=== PATIENT | male | born 1995 | race Two or more races ===

== ENCOUNTER 2018-06-13 20:31 | Emergency (ER) | payer SELFPAY ==
[~2018-06-13] VITALS: Ht 175.3 cm; Wt 90.7 kg
--- NOTE | 2018-06-13 20:43 | Emergency Room Report ---
History of Present Illness General Chief Complaint: Dyspnea/Respdistress Source: Patient Present Illness HPI Patient is a 23-year-old male presented after increased sudden onset of shortness of breath. Patient states he had onset while driving. Patient reports being a smoker. He denies prior medical history. He states that he feels like his heart is beating faster than usual. Patient denies any drug use. He states he smokes about a half a pack of cigarette a day. He denies any fever or productive cough.Patient denies any alcohol or drug use. Patient denies any recent leg pain or swelling. He denies feeling ill otherwise. Allergies: Coded Allergies: No Known Allergies (Unverified , 06/13/18) Patient History Past Medical History: see triage record Reviewed Nursing Documentation: PMH: Agreed; PSxH: Agreed Nursing Documentation-PMH Past Medical History: No Stated History Review of Systems All Other Systems: negative except mentioned in HPI Physical Exam Vital Signs Date Time Temp Pulse Resp B/P (MAP) Pulse Ox O2 Delivery O2 Flow Rate FiO2 06/13/18 20:34 98.1 120 18 159/109 98 Room Air Sp02 EP Interpretation: reviewed, normal General Appearance: normal inspection, well appearing, no apparent distress, alert, GCS 15, non-toxic Head: normocephalic, atraumatic ENT: normal ENT inspection, hearing grossly normal, normal voice Neck: normal inspection, full range of motion, supple, no bony tend Respiratory: normal inspection, lungs clear, normal breath sounds, no respiratory distress, no retraction, no wheezing Cardiovascular #1: regular rate, rhythm, no edema Gastrointestinal: normal inspection, normal bowel sounds, non tender, soft, no guarding, no hernia Genitourinary: no CVA tenderness Musculoskeletal: normal inspection, back normal, normal range of motion Neurologic: normal inspection, alert, responsive, speech normal Psychiatric: normal inspection, judgement/insight normal, mood/affect normal Skin: normal inspection, normal color, no rash Medical Decision Making Diagnostic Impression: Primary Impression: Viral respiratory illness ER Course Patient presented for palpitations. The differential diagnosis included was not limited to arrhythmia, thyroid storm, sepsis, anemia, myocardial infarction , alcohol withdrawal, stimulant abuse, caffeine overdose among others. Because of complexity of patient's case imaging studies were ordered.Patient was noted to be somewhat tachycardic. EKG showed normal sinus rhythm without any acute ST or T wave changes. Patient does not have any risk factor for pulmonary embolism.Patient was given breathing treatment.Chest x-ray 1 view interpreted by me showed normal cardiac size without evident infiltrate. Normal mediastinum. There are no pleural effusions noted.Patient was given breathing treatment with improvement of symptoms. Patient was noted to have no cardiac risk factors and unremarkable EKG patient was advised to recheck with his primary care physician in 1-2 days. Labs Test 06/13/18 21:05 Urine Opiates Screen Negative (NEGATIVE) Urine Barbiturates Screen Negative (NEGATIVE) Phencyclidine (PCP) Screen Negative (NEGATIVE) Urine Amphetamines Screen Negative (NEGATIVE) Urine Benzodiazepines Screen Negative (NEGATIVE) Urine Cocaine Screen Negative (NEGATIVE) Urine Marijuana (THC) Screen Negative (NEGATIVE) EKG Diagnostic Results Rate: tachycardiac - 113 Rhythm: NSR ST Segments: no acute changes Last Vital Signs Date Time Temp Pulse Resp B/P (MAP) Pulse Ox O2 Delivery O2 Flow Rate FiO2 06/13/18 20:34 98.1 120 18 159/109 98 Room Air Status: improved Disposition: HOME, SELF-CARE Condition: Stable Scripts Albuterol Sulfate* (ALBUTEROL SULFATE MDI*) 8.5 Gm Hfa.aer.ad 2 PUFF INH Q4H PRN for cough/wheezing, #1 EA 0 Refills Prov: Suleiman Ansari MD 06/13/18 Suleiman Ansari MD Jun 13, 2018 20:43
[2018-06-13] MEDS ORDERED: Albuterol/Ipratropium 3ml neb HHN ONE (20:45)
--- NOTE | 2018-06-13 20:45 | NUR ---
ED Nurse Note: RECIEVED PT ON [place] FROM HOME AWAKE, ALERT AND ORIENTED X 4, HERE WITH C/O SOB, STATES HAS HAD INTERMITTENT SOB FOR PAST 3 WEEKS, COMES SUDDENLY, DENIES CP, SOUGH, ANY OTHER PAIN OR DISTRESS OR DISCOMFORTS, PT APPEARS SLIGHTLY ANXIOUS, CANT SIT STILL AND ASKING SAME QUESTIONS OVER AND OVER AND HAS SCARED APPEARANCE ON FACE, PT DENEIS ANXIETY, DRUG USE OR ANY OTHER COMPLAITNS.
--- NOTE | 2018-06-13 22:25 | NUR ---
ED Nurse Note: PT BEING D/C TO HOME, AWAKE, ALERT AND ORIENTED X 4, AMBULATORY, NO CP, NO SOB NOTED, STATES BREATHING IS BETTER, O2 UKC=028%, PT GIVEN F/U INFO, AFTER CARE INSTRUCTIONS AND RE-VERBALIZES PROPER MEDICATIONI ADMINISTRATION, PT WITH SPOUSE, ARMBAND REMOVED, NAD NOTED DURING D/C TO HOME.
[2018-06-13] MEDS ORDERED: ALBUTEROL SULF8.5 GM INH (22:26)
[2018-06-13 22:30] VITALS: BP 117/64
[2018-06-13 22:45] VITALS: BP 117/64
--- NOTE | 2018-06-14 14:15 | Diagnostic Imaging Report ---
Indication: Dyspnea Comparison: None A single view chest radiograph was obtained. Findings: Cardiomediastinal appearance is within normal limits for age. The lungs are clear. Pulmonary vascularity is appropriate. The diaphragmatic contour is smooth and costophrenic angles are sharp. No pleural effusions are identified. The bones are unremarkable. Impression: No acute findings
== END 2018-06-13 22:40 | disposition home or self-care (01) ==
LOC: EMR 20:48
DX: J98.9 Respiratory disorder, unspecified (principal); B34.9 Viral infection, unspecified; R00.2 Palpitations; F17.200 Nicotine dependence, unspecified, uncomplicated
CPT/HCPCS: 71045; 80307; 86710; 93005; 94640; 94664; 99284; J7620